=== PATIENT | male | born 1995 | race Caucasian/White ===

== ENCOUNTER 2018-04-16 02:17 | Emergency (ER) | payer OTHER ==
[2018-04-16] MEDS: DEXAMETHASONE 10 MG/ML 1 ML INJ IM (03:18)
[2018-04-16] MEDS: MAGNESIUM SULFATE 2 GM/50 ML 50 ML IVPB (03:26)
[2018-04-16] MEDS: ALBUTEROL 0.083% (NEB) 2.5 MG/3 ML AMP NEB (03:42)
[2018-04-16] MEDS: IPRATROPIUM (NEB) 0.5 MG/2.5 ML AMP NEB (03:42)
== END 2018-04-16 05:40 | disposition home or self-care (01) ==
LOC: FTE 02:17
DX: J45.901 Unspecified asthma with (acute) exacerbation (principal); F17.210 Nicotine dependence, cigarettes, uncomplicated
CPT/HCPCS: 71045; 94644; 96372; 96374; 99284-25

== ENCOUNTER 2018-08-09 04:28 | Emergency (ER) | payer OTHER ==
[2018-08-09] MEDS: ALBUTEROL/IPRATROPIUM (NEB) 3 ML AMP HHN (05:05)
== END 2018-08-09 06:10 | disposition home or self-care (01) ==
LOC: E/R 04:28
DX: J45.21 Mild intermittent asthma with (acute) exacerbation (principal); Z87.891 Personal history of nicotine dependence
CPT/HCPCS: 94664; 99283-25